=== PATIENT | male | born 1990 | race Two or more races ===

== ENCOUNTER 2022-04-08 21:03 | Emergency (ER) | payer MEDICAID, OTHER ==
[~2022-04-08] VITALS: Ht 188 cm; Wt 188.6 kg
[2022-04-08 21:20] VITALS: BP 146/100
[2022-04-08] MEDS ORDERED: methylPREDNISolone SOD SUCC 125 MG/2 ML VL IM ONE (23:15)
[2022-04-08] MEDS ORDERED: KETOROLAC TROMETH 60MG/2ML VIAL IM ONE (23:15)
[2022-04-08] MEDS ORDERED: COLC0.6T56 PO (23:16)
[2022-04-08] MEDS ORDERED: INDO50CA82 PO (23:16)
== END 2022-04-08 23:30 | disposition home or self-care (01) ==
LOC: ER 21:08
DX: M10.9 Gout, unspecified (principal)
CPT/HCPCS: 73630; 96372; 99284; J1885; J2930

== ENCOUNTER 2022-04-11 02:41 | Emergency (ER) | payer MEDICAID ==
[~2022-04-11] VITALS: Ht 188 cm; Wt 181.8 kg
[~2022-04-11 02:41] MED LIST: COLC0.6T56 PO; INDO50CA82 PO
[2022-04-11] MEDS ORDERED: methylPREDNISolone SOD SUCC 125 MG/2 ML VL IM ONE (07:00)
[2022-04-11] MEDS ORDERED: KETOROLAC TROMETH 60MG/2ML VIAL IM ONE (07:00)
[2022-04-11] MEDS ORDERED: INDO50CA82 PO (07:26)
[2022-04-11] MEDS ORDERED: PRED20TA2 PO (07:26)
[2022-04-11 08:00] VITALS: BP 135/90
== END 2022-04-11 07:43 | disposition home or self-care (01) ==
LOC: ER 02:45
DX: M10.9 Gout, unspecified (principal)
CPT/HCPCS: 96372; 99284; J1885; J2930

== ENCOUNTER 2022-09-03 10:12 | Emergency (ER) | payer MEDICAID ==
[~2022-09-03] VITALS: Ht 188 cm; Wt 183.8 kg
[~2022-09-03 10:12] MED LIST changes: +PRED20TA2 PO
[2022-09-03 12:42] VITALS: BP 119/86
[2022-09-03] MEDS ORDERED: ACETAMINOPHEN 500 MG TAB PO ONE (12:45)
[2022-09-03] MEDS ORDERED: DexAMETHasone SOD PHOS 10MG/1ML VIAL INJ IM ONE (12:45)
[2022-09-03] MEDS ORDERED: PENI500T2 PO (13:23)
[2022-09-03] MEDS ORDERED: BENZ1LOZ3 MT (13:26)
[2022-09-03] MEDS ORDERED: ACET1CAP14 PO (13:26)
== END 2022-09-03 13:28 | disposition home or self-care (01) ==
LOC: ER 10:12
DX: J03.80 Acute tonsillitis due to other specified organisms (principal); B96.89 Other specified bacterial agents as the cause of diseases classified elsewhere
CPT/HCPCS: 87070; 87880; 96372; 99283; J1100

== ENCOUNTER 2022-10-03 09:01 | Emergency (ER) | payer MEDICAID ==
[~2022-10-03] VITALS: Ht 188 cm; Wt 190.0 kg
[~2022-10-03 09:01] MED LIST changes: +ACET1CAP14 PO; +BENZ1LOZ3 MT; +PENI500T2 PO
[2022-10-03 09:07] VITALS: BP 123/73
[2022-10-03] MEDS ORDERED: KETOROLAC TROMETH 60MG/2ML VIAL IM ONE (09:45)
[2022-10-03] MEDS ORDERED: INDO50CA82 PO (10:00)
[2022-10-03] MEDS ORDERED: COLC1CAP PO (10:00)
== END 2022-10-03 10:10 | disposition home or self-care (01) ==
LOC: ER 09:01
DX: M10.9 Gout, unspecified (principal); Z79.899 Other long term (current) drug therapy
CPT/HCPCS: 96372; 99283; J1885